=== PATIENT | male | born 1990 | race Two or more races ===

== ENCOUNTER 2019-09-10 18:37 | Inpatient (IN) | payer OTHER ==
[~2019-09-10] VITALS: Ht 162.6 cm; Wt 65.4 kg
[2019-09-10] MEDS ORDERED: OLAN5TAB2 PO (19:20)
[2019-09-10] MEDS ORDERED: ONDANSETRON HCL 4 MG/2 ML VIAL IVP PRN ×2 (19:45→21:30)
[2019-09-10] MEDS ORDERED: 0.9% SODIUM CHLORIDE 10 ML SYRINGE IVP PRN ×2 (19:45→21:30)
[2019-09-10] MEDS ORDERED: ACETAMINOPHEN 325 MG TABLET PO PRN ×2 (19:45→21:30)
[2019-09-10 20:13] LABS: BASOPHILS % (AUTO) 0.9 % (0.0-2.0); EOSINOPHILS % (AUTO) 1.4 % (1.0-6.0); HEMATOCRIT 45.4 % (41-53); HEMOGLOBIN 14.9 g/dL (13.5-17.5); LYMPHOCYTES # (AUTO) 2.5 K/uL (1.0-4.8); LYMPHOCYTES % (AUTO) 35.6 % (22.0-44.0); MEAN CORPUSCULAR HEMOGLOBIN 29.2 pg (26.0-34.0); MEAN CORPUSCULAR HGB CONC 32.7 G/dL (31.0-37.0); MEAN CORPUSCULAR VOLUME 89 fL (80-100); MONOCYTES # (AUTO) 0.7 K/uL (0.1-1.0); MONOCYTES % (AUTO) 10.3 % (2.0-9.0); NEUTROPHILS # (AUTO) 3.7 K/uL (1.8-7.7); NEUTROPHILS % (AUTO) 51.8 % (40.0-70.0); PLATELET COUNT (AUTO) 186 K/uL (150-450); RED BLOOD CELL COUNT(AUTO) 5.08 MIL/uL (4.50-5.90); RED CELL DISTRIBUTION WIDTH 14.7 % (11.5-14.5)
[2019-09-10 20:25] LABS: ANION GAP 7 mmol/L (8-16); CALCIUM, TOTAL 8.9 mg/dL (8.8-10.5); CARBON DIOXIDE 31 mmol/L (22-29); CHLORIDE 105 mmol/L (98-107); CREATININE 1.24 mg/dL (0.60-1.30); GLOMERULAR FILTR. RATE CALC > 60 mL/min (>60); GLUCOSE,RANDOM 101 mg/dL (70-110); POTASSIUM 4.7 mmol/L (3.5-5.1); SODIUM SERUM 143 mmol/L (136-145); UREA NITROGEN, BLOOD 16 mg/dL (7-18)
[2019-09-10 20:32] LABS: ALANINE AMINOTRANSFERASE 24 U/L (12-78); ALBUMIN 4.1 g/dL (3.4-5.0); ALKALINE PHOSPHATASE 143 U/L (46-116); ASPARTATE AMINOTRANSFERASE 15 U/L (15-37); BILIRUBIN,TOTAL 0.3 mg/dL (0.1-1.0); TOTAL PROTEIN, SERUM 7.1 g/dL (6.4-8.2)
[2019-09-10] MEDS ORDERED: ZOLPIDEM TARTRATE 10 MG TABLET PO PRN (21:30)
[2019-09-10] MEDS ORDERED: POTASSIUM CHL 10 MEQ/WATER 50 ML IV PRN (21:30)
[2019-09-10] MEDS ORDERED: MAGNESIUM OXIDE 400 MG TABLET PO PRN (21:30)
[2019-09-10] MEDS ORDERED: MAGNESIUM SULFATE 2 GM/WATER 50 ML IV PRN (21:30)
[2019-09-10] MEDS ORDERED: MAGNESIUM SULFATE 4 GM/WATER 100 ML IV PRN (21:30)
[2019-09-10] MEDS ORDERED: POTASSIUM CHLORIDE 20 MEQ ER TABLET PO PRN (21:30)
[2019-09-10] MEDS: DOCUSATE SODIUM 100 MG CAPSULE PO SCH (22:13)
[2019-09-10 23:00] VITALS: BP 134/68
[2019-09-11] MEDS: HEPARIN SODIUM,PORCINE 5,000 UNITS/ML VIAL SQ SCH ×4 (00:22→23:42)
[2019-09-11 08:16] VITALS: BP 114/73
[2019-09-11] MEDS: DOCUSATE SODIUM 100 MG CAPSULE PO SCH ×2 (08:57→23:30)
[2019-09-11] MEDS: PANTOPRAZOLE SODIUM 40 MG DR TABLET PO SCH (08:57)
[2019-09-11] MEDS: SODIUM CHLORIDE 0.9% 1,000 ML IV SCH (11:48)
[2019-09-11 15:29] VITALS: BP 124/70
[2019-09-11 15:44] VITALS: BP 109/85
[2019-09-11 23:45] VITALS: BP 133/70
[2019-09-12] MEDS: SODIUM CHLORIDE 0.9% 1,000 ML IV SCH ×2 (02:06→16:13)
[2019-09-12 05:36] VITALS: BP 130/70
[2019-09-12] MEDS: HEPARIN SODIUM,PORCINE 5,000 UNITS/ML VIAL SQ SCH ×3 (08:00→20:44)
[2019-09-12 08:06] VITALS: BP 117/74
[2019-09-12] MEDS: PANTOPRAZOLE SODIUM 40 MG DR TABLET PO SCH (08:54)
[2019-09-12] MEDS: DOCUSATE SODIUM 100 MG CAPSULE PO SCH ×2 (08:54→20:36)
[2019-09-12 16:07] VITALS: BP 121/62
[2019-09-12 20:10] VITALS: BP 130/52
[2019-09-13 04:25] VITALS: BP 124/73
[2019-09-13] MEDS: SODIUM CHLORIDE 0.9% 1,000 ML IV SCH ×2 (06:36→21:00)
[2019-09-13] MEDS: HEPARIN SODIUM,PORCINE 5,000 UNITS/ML VIAL SQ SCH ×3 (08:00→23:01)
[2019-09-13 08:15] VITALS: BP 118/57
[2019-09-13] MEDS: PANTOPRAZOLE SODIUM 40 MG DR TABLET PO SCH (08:25)
[2019-09-13] MEDS: DOCUSATE SODIUM 100 MG CAPSULE PO SCH ×2 (08:26→21:00)
[2019-09-13 15:52] VITALS: BP 144/69
[2019-09-13 19:51] VITALS: BP 138/65
[2019-09-14 08:00] VITALS: BP 122/65
[2019-09-14] MEDS: PANTOPRAZOLE SODIUM 40 MG DR TABLET PO SCH (09:43)
[2019-09-14] MEDS: DOCUSATE SODIUM 100 MG CAPSULE PO SCH ×2 (09:43→20:56)
[2019-09-14] MEDS: HEPARIN SODIUM,PORCINE 5,000 UNITS/ML VIAL SQ SCH ×3 (09:45→23:27)
[2019-09-14] MEDS: SODIUM CHLORIDE 0.9% 1,000 ML IV SCH ×2 (11:18→23:27)
[2019-09-14 16:00] VITALS: BP 121/65
[2019-09-14 20:30] VITALS: BP 132/70
[2019-09-15 04:00] VITALS: BP 119/70
[2019-09-15 08:28] LABS: BASOPHILS % (AUTO) 0.7 % (0.0-2.0); EOSINOPHILS % (AUTO) 2.9 % (1.0-6.0); HEMATOCRIT 46.3 % (41-53); HEMOGLOBIN 15.7 g/dL (13.5-17.5); LYMPHOCYTES # (AUTO) 2.5 K/uL (1.0-4.8); LYMPHOCYTES % (AUTO) 38.7 % (22.0-44.0); MEAN CORPUSCULAR HGB CONC 33.8 G/dL (31.0-37.0); MEAN CORPUSCULAR VOLUME 89 fL (80-100); MONOCYTES # (AUTO) 0.6 K/uL (0.1-1.0); MONOCYTES % (AUTO) 8.6 % (2.0-9.0); NEUTROPHILS # (AUTO) 3.1 K/uL (1.8-7.7); NEUTROPHILS % (AUTO) 49.1 % (40.0-70.0); PLATELET COUNT (AUTO) 170 K/uL (150-450); RED BLOOD CELL COUNT(AUTO) 5.21 MIL/uL (4.50-5.90); RED CELL DISTRIBUTION WIDTH 14.6 % (11.5-14.5)
[2019-09-15 08:40] VITALS: BP 97/57
[2019-09-15] MEDS: PANTOPRAZOLE SODIUM 40 MG DR TABLET PO SCH (08:47)
[2019-09-15] MEDS: DOCUSATE SODIUM 100 MG CAPSULE PO SCH ×2 (08:47→20:38)
[2019-09-15] MEDS: HEPARIN SODIUM,PORCINE 5,000 UNITS/ML VIAL SQ SCH ×2 (08:51→16:00)
[2019-09-15 09:00] LABS: ANION GAP 10 mmol/L (8-16); CALCIUM, TOTAL 8.8 mg/dL (8.8-10.5); CARBON DIOXIDE 27 mmol/L (22-29); CHLORIDE 103 mmol/L (98-107); CREATININE 1.06 mg/dL (0.60-1.30); GLOMERULAR FILTR. RATE CALC > 60 mL/min (>60); GLUCOSE,RANDOM 92 mg/dL (70-110); POTASSIUM 4.5 mmol/L (3.5-5.1); SODIUM SERUM 140 mmol/L (136-145); UREA NITROGEN, BLOOD 15 mg/dL (7-18)
[2019-09-15] MEDS: SODIUM CHLORIDE 0.9% 1,000 ML IV SCH (15:54)
[2019-09-15 20:45] VITALS: BP 124/59
[2019-09-16] MEDS: HEPARIN SODIUM,PORCINE 5,000 UNITS/ML VIAL SQ SCH ×4 (00:01→23:31)
[2019-09-16 04:39] VITALS: BP 111/62
[2019-09-16] MEDS: SODIUM CHLORIDE 0.9% 1,000 ML IV SCH ×2 (06:12→20:30)
[2019-09-16 07:59] VITALS: BP 108/54
[2019-09-16] MEDS: PANTOPRAZOLE SODIUM 40 MG DR TABLET PO SCH (09:26)
[2019-09-16] MEDS: DOCUSATE SODIUM 100 MG CAPSULE PO SCH ×2 (09:26→20:30)
[2019-09-16] MEDS: MetroNIDAZOLE 500 MG TABLET PO SCH ×2 (15:53→20:30)
[2019-09-16 16:13] VITALS: BP 113/58
[2019-09-16 21:00] VITALS: BP 121/59
[2019-09-17 05:27] VITALS: BP 109/53
[2019-09-17 07:37] VITALS: BP 123/55
[2019-09-17] MEDS: PANTOPRAZOLE SODIUM 40 MG DR TABLET PO SCH (08:03)
[2019-09-17] MEDS: DOCUSATE SODIUM 100 MG CAPSULE PO SCH ×2 (08:03→19:59)
[2019-09-17] MEDS: HEPARIN SODIUM,PORCINE 5,000 UNITS/ML VIAL SQ SCH ×3 (08:03→23:35)
[2019-09-17] MEDS: MetroNIDAZOLE 500 MG TABLET PO SCH ×3 (08:04→19:59)
[2019-09-17] MEDS: SODIUM CHLORIDE 0.9% 1,000 ML IV SCH (10:32)
[2019-09-17 15:31] VITALS: BP 113/55
[2019-09-17 21:06] VITALS: BP 134/69
[2019-09-18] MEDS: SODIUM CHLORIDE 0.9% 1,000 ML IV SCH (01:06)
[2019-09-18 03:59] VITALS: BP 97/52
[2019-09-18] MEDS: PANTOPRAZOLE SODIUM 40 MG DR TABLET PO SCH (08:23)
[2019-09-18] MEDS: HEPARIN SODIUM,PORCINE 5,000 UNITS/ML VIAL SQ SCH ×2 (08:23→16:36)
[2019-09-18] MEDS: DOCUSATE SODIUM 100 MG CAPSULE PO SCH (08:23)
[2019-09-18] MEDS: MetroNIDAZOLE 500 MG TABLET PO SCH ×2 (08:23→16:35)
[2019-09-18 08:34] VITALS: BP 115/57
[2019-09-18] MEDS ORDERED: METR500 PO (12:37)
== END 2019-09-18 19:20 | DRG 93 ==
LOC: EMS 18:38 → 6S 19:30 → 6N 09-12 17:30 → 6S 09-16 15:41
PROVIDERS: ADMIT Internal Medicine; ATTEND Internal Medicine
DX: G92 Toxic encephalopathy (principal); F32.9 Major depressive disorder, single episode, unspecified; F20.9 Schizophrenia, unspecified; F15.10 Other stimulant abuse, uncomplicated; Z03.818 Encounter for observation for suspected exposure to other biological agents ruled out; Z79.899 Other long term (current) drug therapy
CPT/HCPCS: 70450; 83735; 87491; G0480; J1644; J7030

== ENCOUNTER 2020-02-14 22:01 | Inpatient (IN) | payer OTHER ==
[~2020-02-14] VITALS: Ht 172.7 cm; Wt 75.1 kg
[~2020-02-14 22:01] MED LIST: RISP1TAB48 PO
[2020-02-15 00:03] LABS: BASOPHILS % (AUTO) 0.8 % (0.0-2.0); EOSINOPHILS % (AUTO) 1.8 % (1.0-6.0); HEMATOCRIT 43.4 % (41-53); HEMOGLOBIN 14.9 g/dL (13.5-17.5); LYMPHOCYTES # (AUTO) 2.7 K/uL (1.0-4.8); LYMPHOCYTES % (AUTO) 45.1 % (22.0-44.0); MEAN CORPUSCULAR HEMOGLOBIN 29.4 pg (26.0-34.0); MEAN CORPUSCULAR HGB CONC 34.2 G/dL (31.0-37.0); MEAN CORPUSCULAR VOLUME 86 fL (80-100); MONOCYTES # (AUTO) 0.5 K/uL (0.1-1.0); MONOCYTES % (AUTO) 8.9 % (2.0-9.0); NEUTROPHILS # (AUTO) 2.6 K/uL (1.8-7.7); NEUTROPHILS % (AUTO) 43.4 % (40.0-70.0); PLATELET COUNT (AUTO) 182 K/uL (150-450); RED BLOOD CELL COUNT(AUTO) 5.06 MIL/uL (4.50-5.90); RED CELL DISTRIBUTION WIDTH 12.9 % (11.5-14.5)
[2020-02-15 00:14] LABS: ANION GAP 8 mmol/L (8-16); CALCIUM, TOTAL 9.1 mg/dL (8.8-10.5); CARBON DIOXIDE 28 mmol/L (22-29); CHLORIDE 102 mmol/L (98-107); CREATININE 1.15 mg/dL (0.60-1.30); GLOMERULAR FILTR. RATE CALC > 60 mL/min (>60); GLUCOSE,RANDOM 103 mg/dL (70-110); POTASSIUM 3.4 mmol/L (3.5-5.1); SODIUM SERUM 138 mmol/L (136-145); UREA NITROGEN, BLOOD 16 mg/dL (7-18)
[2020-02-15] MEDS ORDERED: HYDR50CA9 PO (00:18)
[2020-02-15] MEDS ORDERED: BUSP10TA23 PO (00:18)
[2020-02-15] MEDS ORDERED: BENZ2TAB10 PO (00:18)
[2020-02-15] MEDS ORDERED: RISP3TAB35 PO (00:18)
[2020-02-15 00:20] LABS: ALANINE AMINOTRANSFERASE 25 U/L (12-78); ALBUMIN 4.3 g/dL (3.4-5.0); ALKALINE PHOSPHATASE 84 U/L (46-116); ASPARTATE AMINOTRANSFERASE 17 U/L (15-37); BILIRUBIN,TOTAL 0.6 mg/dL (0.1-1.0); TOTAL PROTEIN, SERUM 7.4 g/dL (6.4-8.2)
[2020-02-15] MEDS ORDERED: 0.9% SODIUM CHLORIDE 10 ML SYRINGE IVP PRN (01:30)
[2020-02-15] MEDS ORDERED: ACETAMINOPHEN 325 MG TABLET PO PRN ×2 (01:30→03:15)
[2020-02-15] MEDS ORDERED: ONDANSETRON HCL 4 MG/2 ML VIAL IVP PRN ×2 (01:30→03:15)
[2020-02-15 03:54] VITALS: BP 127/61
[2020-02-15 04:28] LABS: AMPHET/METH SCREEN,URINE NEGATIVE (NEGATIVE); BARBITURATE SCREEN, URINE NEGATIVE (NEGATIVE); BENZODIAZEPINES SCREEN,URINE NEGATIVE (NEGATIVE); CANNABINOID SCREEN,URINE NEGATIVE (NEGATIVE); COCAINE SCREEN,URINE NEGATIVE (NEGATIVE); METHADONE SCREEN, URINE NEGATIVE (NEGATIVE); OPIATE SCREEN,URINE NEGATIVE (NEGATIVE)
[2020-02-15 04:33] LABS: PHENCYCLIDINE SCREEN,URINE NEGATIVE (NEGATIVE)
[2020-02-15] MEDS ORDERED: INFLUENZA VIRUS VACCINE QVS 2020-21 (6MO+)/PF 60 MCG/0.5 ML SYRINGE IM ONE (05:45)
[2020-02-15 06:00] VITALS: BP 117/71
[2020-02-15 08:18] VITALS: BP 118/85
[2020-02-15] MEDS: HEPARIN SODIUM,PORCINE 5,000 UNITS/ML VIAL SQ SCH ×2 (08:54→16:44)
[2020-02-15] MEDS: DOCUSATE SODIUM 100 MG CAPSULE PO SCH ×3 (08:54→21:28)
[2020-02-15] MEDS ORDERED: FAMOTIDINE 10 MG/ML 2 ML VIAL IVP SCH (09:00)
[2020-02-15] MEDS: BENZTROPINE MESYLATE 1 MG TABLET PO SCH ×2 (12:00→21:28)
[2020-02-15] MEDS: RisperiDONE 2 MG TABLET PO SCH ×2 (12:00→21:28)
[2020-02-15 12:11] VITALS: BP 119/75
[2020-02-15] MEDS: FAMOTIDINE 20 MG TABLET PO SCH (16:44)
[2020-02-15 17:06] VITALS: BP 107/65
[2020-02-15] MEDS ORDERED: POTASSIUM CHLORIDE 10% 40 MEQ/30 ML LIQUID UDCUP PO ONE (19:00)
[2020-02-15] MEDS ORDERED: POTASSIUM CHLORIDE 10% 40 MEQ/30 ML LIQUID UDCUP ONE (19:04)
[2020-02-15 21:00] VITALS: BP 114/77
[2020-02-15] MEDS: BusPIRone HCL 10 MG TABLET PO SCH (21:28)
[2020-02-16 00:45] VITALS: BP 117/72
[2020-02-16 04:53] VITALS: BP 100/61
[2020-02-16 07:28] LABS: ANION GAP 8 mmol/L (8-16); CALCIUM, TOTAL 9.3 mg/dL (8.8-10.5); CARBON DIOXIDE 28 mmol/L (22-29); CHLORIDE 105 mmol/L (98-107); CREATININE 1.33 mg/dL (0.60-1.30); GLOMERULAR FILTR. RATE CALC > 60 mL/min (>60); GLUCOSE,RANDOM 88 mg/dL (70-110); POTASSIUM 4.2 mmol/L (3.5-5.1); SODIUM SERUM 141 mmol/L (136-145); UREA NITROGEN, BLOOD 17 mg/dL (7-18)
[2020-02-16 08:30] VITALS: BP 103/64
[2020-02-16] MEDS: HEPARIN SODIUM,PORCINE 5,000 UNITS/ML VIAL SQ SCH ×4 (09:58→23:37)
[2020-02-16] MEDS: RisperiDONE 2 MG TABLET PO SCH ×2 (09:58→21:38)
[2020-02-16] MEDS: BENZTROPINE MESYLATE 1 MG TABLET PO SCH ×2 (09:58→21:38)
[2020-02-16] MEDS: BusPIRone HCL 10 MG TABLET PO SCH ×2 (09:58→21:38)
[2020-02-16] MEDS: DOCUSATE SODIUM 100 MG CAPSULE PO SCH ×2 (09:58→21:38)
[2020-02-16] MEDS: FAMOTIDINE 20 MG TABLET PO SCH (09:58)
[2020-02-16 11:56] VITALS: BP 112/69
[2020-02-16 17:11] VITALS: BP 113/72
[2020-02-16 19:58] VITALS: BP 135/67
[2020-02-16] MEDS: ZOLPIDEM TARTRATE 5 MG TABLET PO PRN (21:38)
[2020-02-17] VITALS (7 sets, daily range): BP systolic 96–117; BP diastolic 55–69
[2020-02-17] MEDS: FAMOTIDINE 20 MG TABLET PO SCH (08:18)
[2020-02-17] MEDS: DOCUSATE SODIUM 100 MG CAPSULE PO SCH ×2 (08:18→21:54)
[2020-02-17] MEDS: BusPIRone HCL 10 MG TABLET PO SCH ×2 (08:18→21:54)
[2020-02-17] MEDS: HEPARIN SODIUM,PORCINE 5,000 UNITS/ML VIAL SQ SCH ×3 (08:18→23:58)
[2020-02-17] MEDS: RisperiDONE 2 MG TABLET PO SCH ×2 (08:18→21:54)
[2020-02-17] MEDS: BENZTROPINE MESYLATE 1 MG TABLET PO SCH ×2 (08:18→21:54)
[2020-02-17] MEDS ORDERED: HydrOXYzine PAMOATE 25 MG CAPSULE PO PRN (11:00)
[2020-02-17] MEDS: ZOLPIDEM TARTRATE 5 MG TABLET PO PRN (21:54)
[2020-02-18 05:12] VITALS: BP 115/68
[2020-02-18 07:46] VITALS: BP 118/66
[2020-02-18] MEDS: HEPARIN SODIUM,PORCINE 5,000 UNITS/ML VIAL SQ SCH (08:48)
[2020-02-18] MEDS: BENZTROPINE MESYLATE 1 MG TABLET PO SCH (08:48)
[2020-02-18] MEDS: FAMOTIDINE 20 MG TABLET PO SCH (08:48)
[2020-02-18] MEDS: BusPIRone HCL 10 MG TABLET PO SCH (08:49)
[2020-02-18] MEDS: DOCUSATE SODIUM 100 MG CAPSULE PO SCH (08:49)
[2020-02-18] MEDS ORDERED: RISP2TAB45 PO ×2 (10:29)
[2020-02-18] MEDS ORDERED: BENZ1TAB10 PO ×2 (10:30)
[2020-02-18] MEDS ORDERED: BUSP10TA23 PO (10:30)
[2020-02-18] MEDS: RisperiDONE 2 MG TABLET PO SCH (10:35)
== END 2020-02-18 14:55 | DRG 885 ==
LOC: EMS 22:03 → 5S 02-15 01:30 → 6N 02-17 22:00
PROVIDERS: ADMIT Internal Medicine; ATTEND Internal Medicine
DX: F20.0 Paranoid schizophrenia (principal); R45.851 Suicidal ideations; F32.9 Major depressive disorder, single episode, unspecified; E87.6 Hypokalemia; F41.9 Anxiety disorder, unspecified; F17.210 Nicotine dependence, cigarettes, uncomplicated
CPT/HCPCS: 84443; G0480; J1644; J3490